=== PATIENT | female | born 1955 | race Caucasian/White ===

== ENCOUNTER → 2018-04-21 09:15 | Outpatient (CLI) | payer OTHER, SELFPAY ==
--- NOTE | 2018-04-21 09:18 | DI.RAD.S_ITS ---
PROCEDURE: XR CERVICAL SPINE 4V OR 5V INDICATIONS: Eval TECHNIQUE: 5 views of the cervical spine acquired. COMPARISON: None. FINDINGS: Bones: No fractures or dislocations to the C7 level. There is moderate to severe C6-C7 disc space narrowing. Mild narrowing of the C7-T1 and C5-C6 disc spaces. There is straightening of the normal cervical lordosis. Diffuse bilateral facet arthropathy. There is mild right C3-C4 foraminal narrowing. The left bone neuroforamina are not well seen due to positioning although no definite high-grade stenosis is seen. Soft tissues: No prevertebral soft tissue swelling. IMPRESSION: Multilevel cervical disc degeneration, predominantly from the mid to lower cervical spine as above. Straightening of the normal cervical lordosis. Diffuse facet arthropathy. Mild right C3-C4 bony foraminal stenosis. Dictated by: Deniz Meraz M.D. on 04/21/2018 at 10:15 Approved by: Deniz Meraz M.D. on 04/21/2018 at 10:18
--- NOTE | 2018-04-21 09:18 | DI.MRI.S_ITS ---
PROCEDURE: MR CERVICAL SPINE WO CON INDICATIONS: Spondylosis of the cervical region. TECHNIQUE: Noncontrast sagittal T1 spin echo and T2 fast spin echo, sagittal STIR, foraminal oblique sagittal T2 fast spin echo, and axial gradient echo or T2 fast spin echo through the cervical spine. COMPARISON: [facility], CR, XR CERVICAL SPINE 4V OR 5V, 04/21/2018, 9:25. FINDINGS: Image quality: Excellent. Alignment and Curvature: There is straightening of the normal cervical lordosis Bone Marrow: Marrow demonstrates normal overall signal. Spinal Cord: Visualized spinal cord has normal size and signal. No cerebellar tonsillar herniation. Paraspinous Soft Tissues: No paravertebral masses. Prevertebral soft tissues are normal in thickness. C2-C3: No significant abnormality is seen. C3-C4: The disc height is relatively well-preserved. A mild degree of generalized disc osteophyte complex is seen. Hpqg-xi-rrlpoxzs facet hypertrophy is seen. There is moderate right-sided and mild left-sided neural foraminal narrowing seen. Minimal central canal narrowing is seen. C4-C5: Moderate loss of disc height is seen. Loss of disc signal is seen. Moderate generalized disc osteophyte complex is seen. Moderate facet joint hypertrophy is seen. There is moderate to severe right-sided and at least moderate left-sided neural foraminal narrowing seen. Mild central canal narrowing is seen. C5-C6: Moderate loss of disc height is seen. Loss of disc signal is seen. Moderate generalized disc osteophyte complex is seen. Mild facet joint hypertrophy is seen. No neural foraminal narrowing is seen. Mild central canal narrowing is seen. C6-C7: At least moderate loss of disc height and disc signal are seen. Reactive marrow endplate changes are seen, which are hyperintense on T1-weighted and T2-weighted imaging and most consistent with fatty metaplasia (Modic type II changes). Moderate generalized disc osteophyte complex is seen. Mild facet joint hypertrophy is seen. No significant neural foraminal narrowing is seen. Mild central canal narrowing is seen. C7-T1: Level within normal limits. IMPRESSION: Multiple levels of cervical spine degenerative change are seen, including moderate disc space narrowing at C4-C5, C5-C6, and at least moderate disc space narrowing at C6-C7. Moderate to severe right-sided neural foraminal narrowing is seen at C4-C5. Dictated by: Monty Pizano M.D. on 04/21/2018 at 11:49 Approved by: Monty Pizano M.D. on 04/21/2018 at 11:56
== END ==
PROVIDERS: PCP Nurse Practitioner Family; Visit Provider Physical Medicine & Rehabilitation
DX: M43.02 Spondylolysis, cervical region (principal); M50.31 Other cervical disc degeneration, high cervical region; M48.02 Spinal stenosis, cervical region
CPT/HCPCS: 72050; 72141

== ENCOUNTER 2018-08-02 10:11 | Outpatient (CLI) | payer OTHER, SELFPAY ==
[2018-08-02] VITALS (9 sets, daily range): BP systolic 105–146; BP diastolic 65–81; PULSE 74–85; RESP 16–18; TEMP 36.3; O2SAT 97–100
--- NOTE | 2018-08-02 10:13 | DI.RAD.S_ITS ---
PROCEDURE: PAIN C/T INTERLAMINAR INJECT INDICATIONS: INTERVERTEBRAL DISC DISPLACEMENT FINDINGS: Fluoroscopic spot filming was performed to verify placement of spinal needles at the C6-C7 dorsal interlaminar level, as labeled on the films. Appropriate location(s) of the needle tip(s) was confirmed by injection of iodinated contrast. IMPRESSION: Successful C6-C7 interlaminar epidural localization for steroid injection. Dictated by: Min Powell M.D. on 08/02/2018 at 12:49 Approved by: Min Powell M.D. on 08/02/2018 at 12:49
[2018-08-02] MEDS: MIDAZOLAM 5 MG/5 ML VIAL IV (11:16)
[2018-08-02] MEDS: IOPAMIDOL 15 ML VIAL 3 ML INJ (11:22)
[2018-08-02] MEDS: DEXAMETHASONE 10 MG/ML VIAL 30 MG INJ (11:22)
--- NOTE | 2018-08-02 11:27 | PC.NURSE ---
ASSISTING PT OFF TABLE AND TRANSPORTING PT TO POST PROC AREA IN STABLE CONDITION
--- NOTE | 2018-08-02 11:30 | PM.PROC.1 ---
Procedures Date/Time Date of procedure: 08/02/18 Time of procedure: 11:30 General Procedure description: PREOP DIAGNOSIS 1. CERVICAL STENOSIS, 2. CERVICAL HNP WITH UPPER EXTREMITY RADICULAR FEATURES, POST OP DIAGNOSIS 1. CERVICAL STENOSIS, 2. CERVICAL HNP WITH UPPER EXTREMITY RADICULAR FEATURES, PROCEDURES 1. FLUORSCOPICALLY GUIDED CONTRAST CONTROLLED INTERLAMINAR EPIDURAL STEROID INJECTION - C6/7 TL EVI PHYSICIAN: Brent Alamo, DO INDICATIONS Molly is referred by IHSAN Francois for treatment of Cervical HNP with Upper Extremity Paresthesias. FINDINGS Cervical Stenosis due to disc deterioration and nerve root irritation and nerve root irritation DESCRIPTION OF PROCEDURE Fluoroscopically guided, contrast-controlled C6/7 translaminar epidural steroid injection with conscious sedation. Following denial of allergy and review of potential side effects and complications, including, but not necessarily limited to, infection, allergic reaction, local tissue breakdown, temporary as well as permanent nerve injury, stroke, paralysis, and possible , the patient indicated that patient understood and agreed to proceed. An informed consent document was signed by the patient, witnessed by a nurse, and placed in the patient's chart. Additionally, other treatment options including modalities, medications, and physical therapy were reviewed with the patient. After review of previous anaesthesic history and IV conscious sedation the patient was deemed safe to proceed with todays procedure with IV conscious sedation as ASA class II designation. Safety time-out was performed to confirm patient ID, procedure to be performed and site of procedure. IV sedation was accomplished with a combination of 5mg of Versed administered by the RN after DO order, titrated to patient comfort during the course of the procedure while the patient remained responsive to all verbal commands. In the prone position, following sterile prep and drape of the cervical region, the C6/7 translaminar space was identified fluoroscopically. The skin was anesthetized via a 25-gauge 1.5-inch needle with 1% lidocaine solution. At this point, a 25-gauge, 2.5-inch short bevel spinal needle was atraumatically introduced and advanced under fluoroscopic guidance into epidural space at the C6/7 translaminar space. Depth was confirmed on lateral view. Radiological data, including multiple fluoroscopic views of the cervical spine, reveal a spinal needle at the C6/7 translaminar space. Lateral views then show placement of the needle in the epidural space. Subsequent views show contrast material flowing superiorly and inferiorly in the epidural space. DSA fluoroscopy with live contrast injection, once again, confirmed no vascular or intrathecal uptake. At this point, using loss of resistance technique with saline and air, the epidural space was entered. Following negative aspiration, injection of approximately 1.5 cc of Isovue-200 with live fluoroscopy in the AP view confirmed epidural flow in the epidural space without vascular or intrathecal uptake observed. Subsequently, a test dose of 1 cc of 1% lidocaine solution was injected and patient was observed for two minutes without signs or symptoms of complications, including abdominal pain, shortness of breath, bilateral upper or lower extremity weakness, nausea and vomiting, prior to steroid injection. At this point, 3 cc or 30 mg of dexamethasone was then injected without incident. The patient tolerated the procedure well without signs or symptoms of complications prior to being transferred to the recovery area for further monitoring, The patient was then transferred to the recovery area where they were observed for an appropriate period of time after the injection. The patient reported a VAS score of 6 prior to the procedure and a post-procedure VAS of 0. Total Fluoroscopy Time: 37.0 seconds Total Conscious Time: 24min POST OP INSTRUCTIONS The patient was provided a Pain Log to continue to record their response to the target-specific procedure prior to follow-up visit with the referring provider. Additionally, specific post-injection care instructions and a contact number to our office were provided if concerns arise regarding possible complications associated with the procedure are suspected. Brent Alamo, Complications: none
--- NOTE | 2018-08-02 12:20 | PC.NURSE ---
pt returned via wheelchair from procedure room, pt awake and alert, able to move from w/c to chair with standby assist. Resumed monitoring from [facility].
== END 2018-08-02 12:12 ==
LOC: RAD 10:12
PROVIDERS: PCP Nurse Practitioner Family; Visit Provider Physical Medicine & Rehabilitation
DX: M48.02 Spinal stenosis, cervical region (principal); M50.123 Cervical disc disorder at C6-C7 level with radiculopathy
CPT/HCPCS: 62321; 99152; J1100; J2250

== ENCOUNTER → 2019-04-25 15:14 | Outpatient (CLI) | payer OTHER, SELFPAY ==
--- NOTE | 2019-04-25 15:17 | DI.RAD.S_ITS ---
PROCEDURE: XR LUMBAR SPINE MIN 4V INDICATIONS: Chronic progressive low back pain with lower extremity sympt TECHNIQUE: 6 views of the lumbar spine were acquired. COMPARISON: None. FINDINGS: Bones: No fracture or focal osseous destruction. Multilevel degenerative endplate sclerosis and spurring. Diffuse facet arthropathy. Trace anterolisthesis of L3 on L4. Bilateral hip degeneration. Degenerative spurring of the sacroiliac joints. Diffuse moderate disc space narrowing, most pronounced at L4-L5 Soft tissues: Overlying bowel gas pattern is normal. No suspicious soft tissue calcifications. Oblique images: No pars defects. IMPRESSION: Diffuse moderate lumbar spondylosis and facet arthropathy. Trace anterolisthesis of L3 on L4. Dictated by: Deniz Meraz M.D. on 04/25/2019 at 15:52 Approved by: Deniz Meraz M.D. on 04/25/2019 at 15:54
== END ==
PROVIDERS: Visit Provider Physical Medicine & Rehabilitation
DX: M47.26 Other spondylosis with radiculopathy, lumbar region (principal); M47.27 Other spondylosis with radiculopathy, lumbosacral region; M54.5 Low back pain; G89.29 Other chronic pain
CPT/HCPCS: 72110

== ENCOUNTER → 2019-05-08 12:34 | Outpatient (CLI) | payer OTHER, SELFPAY ==
--- NOTE | 2019-05-08 12:36 | DI.MRI.S_ITS ---
PROCEDURE: MR LUMBAR SPINE WO CON INDICATIONS: Lumbosacral spondylosis with right lower extremity symptoms TECHNIQUE: Noncontrast sagittal T1 spin echo and T2 fast echo, sagittal STIR, axial T1 and T2 fast spin echo through the lumbar spine. In cases with scoliosis, additional coronal T2 fast spin echo may be performed. COMPARISON: [facility], CR, XR LUMBAR SPINE MIN 4V, 04/25/2019, 15:14. FINDINGS: Image quality: Excellent. Alignment and Curvature: There is minimal anterolisthesis seen at the L3-L4 level. Bone Marrow: Marrow is of normal overall signal. No acute vertebral body compression fractures. Spinal Cord: Conus medullaris terminates at the T12-L1 level. Visualized cord demonstrates normal signal and size. Paraspinous Soft Tissues: No paravertebral masses. This patient has transitional lumbar anatomy. For the purposes of this examination, the level with the most inferior rudimentary disc is considered to be L5-S1. This numbering scheme is chosen to remain consistent prior plain film report. T12-L1: Normal appearance. L1-L2: The disc height and disc signal are relatively well-preserved. There is a focal disc protrusion seen involving the left foraminal region, as on series 5 image 15 and on series 3 image 11. There is mild left-sided and no right-sided neural foraminal narrowing seen. The central canal is widely patent. L2-L3: No significant abnormality is seen. L3-L4: The disc height is well-preserved. Loss of disc signal is seen at this level. Mild to moderate disc bulge is seen. Pzbl-ak-pemgyxnn facet hypertrophy is seen. No significant neural foraminal or central canal narrowing can be seen. L4-L5: At least moderate loss of disc height and disc signal can be seen. Moderate generalized disc bulge is seen. No neural foraminal or central canal narrowing can be seen. L5-S1: There is a transitional, rudimentary disc seen at this level. No significant neural foraminal or central canal narrowing can be seen. IMPRESSION: Degenerative changes are seen, which are most prominent at L1-L2 and L4-L5. Transitional lumbar anatomy noted. Dictated by: Monty Pizano M.D. on 05/08/2019 at 15:09 Approved by: Monty Pizano M.D. on 05/08/2019 at 15:13
== END ==
PROVIDERS: Visit Provider Physical Medicine & Rehabilitation
DX: M47.27 Other spondylosis with radiculopathy, lumbosacral region (principal); M47.26 Other spondylosis with radiculopathy, lumbar region
CPT/HCPCS: 72148

== ENCOUNTER 2019-06-26 09:33 | Outpatient (CLI) | payer OTHER, SELFPAY ==
[2019-06-26] VITALS (8 sets, daily range): BP systolic 112–140; BP diastolic 67–87; PULSE 62–82; RESP 16–18; TEMP 36.3; O2SAT 96–99
--- NOTE | 2019-06-26 09:35 | DI.RAD.S_ITS ---
PROCEDURE: PAIN L/S TRANSFORAMINAL INJECT INDICATIONS: SPONSYLOSIS FINDINGS: Fluoroscopic spot filming was performed to verify placement of spinal needles at the L4-L5 level(s), as labeled on the films. Appropriate location(s) of the needle tip(s) was confirmed by injection of iodinated contrast. IMPRESSION: Fluoroscopy for pain management Dictated by: Christos Hearn M.D. on 06/26/2019 at 11:51 Approved by: Christos Hearn M.D. on 06/26/2019 at 11:51
[2019-06-26] MEDS: MIDAZOLAM 5 MG/5 ML VIAL IV (10:53)
[2019-06-26] MEDS: BUPIVACAINE 0.25% (PF) VIAL 2 ML INJ (11:03)
[2019-06-26] MEDS: DEXAMETHASONE 10 MG/ML VIAL 20 MG INJ (11:03)
[2019-06-26] MEDS: IOPAMIDOL 15 ML VIAL 3 ML INJ (11:03)
[2019-06-26] MEDS: BETAMETHASONE 30 MG/5 ML MDV 6 MG INJ (11:04)
--- NOTE | 2019-06-26 11:06 | PC.NURSE ---
ASSISTING PT OFF TABLE AND TRANSPORTING TO POST PROC AREA IN STABLE CONDITION. PASSING RN CARE OF PT OFF TO FADUMO John RN.
--- NOTE | 2019-06-26 11:11 | P.PCN_ITS ---
Procedures Date/Time Date of procedure: 06/26/19 Time of procedure: 11:12 General Procedure description: PREOP DIAGNOSIS 1. FORMAINAL STENOSIS WITH LE SYMPTOMS POST OP DIAGNOSIS 1. FORMAINAL STENOSIS WITH LE SYMPTOMS PROCEDURES 1. FLUOROSCOPICALLY GUIDED CONTRAST CONTROLLED TRANSFORAMINAL EPIDURAL STEROID INJECTION - RIGHT L4/5 TFESI PHYSICIAN: Brent Alamo DO INDICATIONS: Molly is referred by for treatment of Foraminal Stenosis with Right LE Symptoms FINDINGS Foraminal Nerve Root Compression secondary to disc disease and facet hypertrophy DESCRIPTION OF PROCEDURE: Following review of allergy and review of potential side effects and complications, including, but not necessarily limited to, infection, allergic reaction, local tissue breakdown, stroke, temporary or permanent nerve injury, paralysis, and possible , the patient indicated that the patient understood and agreed to proceed. An informed consent document was signed by the patient, witnessed by a nurse, and placed in the patient's chart. Additionally, other treatment options including medications, modalities, and physical therapy were reviewed with the patient. After review of previous anaesthesic history and IV conscious sedation the patient was deemed safe to proceed with todays procedure with IV conscious sedation as ASA class II designation. Safety time-out was performed to confirm patient ID, procedure to be performed and site of procedure. IV sedation was accomplished with a combination of 3mg of Versed was administered by the RN after DO order, titrated to patient comfort during the course of the procedure while the patient remained responsive to all verbal commands In the prone position following sterile prep and drape of the lumbar region, the Right L4/5 posterior neuroforamen was identified fluoroscopically. The skin was anesthetized via a 25-gauge 1.5-inch needle with 1% lidocaine solution. At this point, a 25-gauge 3.5-inch spinal needle was atraumatically introduced and advanced under fluoroscopic guidance through the posterior Right L4/5 neuroforamen to approximately the anterior aspect of the canal. Depth was confirmed on lateral view. Following negative aspiration, injection of approximately 1.5 cc of Isovue 200 under live fluoroscopy in the AP view confirmed excellent flow along the nerve root, into the epidural space without vascular or intrathecal uptake observed Radiological data, including multiple fluoroscopic views of the lumbosacral spine, reveal a spinal needle at the right L4/5 posterior neuroforamen. Subsequent views show flow of contrast material flowing superiorly and inferiorly along the nerve root confirming epidural flow. Subsequently, a test dose of 1.5 cc of 1% lidocaine solution was administered and patient was observed for two minutes for signs or symptoms of complications, including abdominal pain, shortness of breath, bilateral upper or lower extremity weakness, nausea and vomiting, prior to steroid injection. At this point, a total of 3cc or 20mg of dexamethasone and 6mg of betamethasone was injected without incident. The procedure tolerated the procedure well without signs or symptoms of complications prior to transfer to the recovery area continued monitoring without incident.The patient was then transferred to the recovery area where they were observed for an appropriate time after the injection. The patient reported a VAS score of 7 prior to the procedure and a post- procedure VAS of 1. Total Fluoroscopy Time: 18.9 seconds Total Conscious Sedation Time: 24min POST OP INSTRUCTIONS The patient was provided a Pain Log to continue to record their response to the target-specific procedure prior to follow-up visit with their referring physician. Additionally, specific post-injection care instructions and a contact number to our office were provided if concerns arise regarding possible complications associated with the procedure are suspected. Brent Alamo DO Complications: none
--- NOTE | 2019-06-26 17:16 | PC.NURSE ---
VERSED AND FENTANYL PREPARED AND ADMINISTERED BY THIS RN. ALL OTHER MEDS PREPARED AND ADMINISTERED BY DR. HERNANDEZ.
--- NOTE | 2019-06-26 18:12 | PC.NURSE ---
Late entry: Discharge note-- Received handoff report from Franny Juarez RN at 1053. VSS, O2 Sat WNL on RA. Patient awake and alert. Pain level 4/10 on arrival and improved to 2/10 at discharge to home at 1117.
== END 2019-06-26 11:40 | disposition home or self-care (01) ==
PROVIDERS: PCP Family Medicine; Visit Provider Physical Medicine & Rehabilitation
DX: M48.061 Spinal stenosis, lumbar region without neurogenic claudication (principal); M51.16 Intervertebral disc disorders with radiculopathy, lumbar region
CPT/HCPCS: 64483; 99152; J0702; J1100; J2250; J3010